=== PATIENT | female | born 1980 | race American Indian/Alaskan Native ===

== ENCOUNTER 2020-12-11 05:51 | Emergency (ER) | payer MEDICAID | END 2020-12-11 09:50 | disposition left against medical advice (07) | LOC: ED 05:51 | DX: Z53.21 Procedure and treatment not carried out due to patient leaving prior to being seen by health care provider (principal) ==

== ENCOUNTER 2021-10-03 09:23 | Emergency (ER) | payer MEDICARE, MEDICAID ==
[2021-10-03 09:24] VITALS: BP 162/110
--- NOTE | 2021-10-03 09:43 | Emergency Department Report ---
ED Female HPI - General Chief complaint: Urogenital-Female Stated complaint: STD/General Illness Time Seen by Provider: 10/03/21 09:26 Source: EMS Mode of arrival: Stretcher Limitations: No Limitations - History of Present Illness Initial comments: Patient presents secondary to lower abdominal pain associate with vaginal discharge and odor. She actually states that she had intercourse with somebody a year ago and is just now developing symptoms. She believes that she has trichomonas. Patient has vaginal discharge and odor that have been present for the last couple of days. She reports having some lower abdominal pain associated with this. There has been no dysuria or frequency. She states that she just "feels bad." She has had no fevers or chills. She has had no vomiting or diarrhea. Patient has muscle aches and body aches, but no cough or congestion. Patient denies sick contacts. She does not believe she is currently . - Related Data Previous Rx's Medication Instructions Recorded Last Taken Type Vit-Fe Fumar-FA [ 1 tab PO QDAY #90 tablet 07/29/15 Unknown Rx Vitamin] Doxycycline Monohydrate 100 mg PO BID #20 cap 10/03/21 Unknown Rx [Doxycycline Monohydrate CAP] Allergies Allergy/AdvReac Type Severity Reaction Status Date / Time No Known Allergies Allergy Verified 10/03/21 09:24 ED Review of Systems ROS: Stated complaint: STD/General Illness Other details as noted in HPI Comment: All other systems reviewed and negative Constitutional: denies: fever Eyes: denies: vision change ENT: denies: throat pain Respiratory: denies: cough Cardiovascular: denies: chest pain Endocrine: denies: unexplained weight loss Gastrointestinal: as per HPI Genitourinary: as per HPI Musculoskeletal: denies: back pain Skin: denies: rash Neurological: denies: headache Hematological/Lymphatic: denies: easy bruising ED Past Medical Hx - Past Medical History Hx Psychiatric Treatment: Yes (depression) - Family History Family history: no significant - Social History Smoking Status: Current Every Day Smoker Substance Use Type: None - Medications Home Medications: Home Medications Medication Instructions Recorded Confirmed Last Taken Type Vit-Fe Fumar-FA [ 1 tab PO QDAY #90 tablet 07/29/15 Unknown Rx Vitamin] Doxycycline Monohydrate 100 mg PO BID #20 cap 10/03/21 Unknown Rx [Doxycycline Monohydrate CAP] ED Physical Exam - General Limitations: No Limitations, Other (Pulse ox noted and normal) General appearance: alert, in no apparent distress - Head Head exam: Present: atraumatic, normocephalic - Eye Eye exam: Present: normal appearance, PERRL, EOMI. Absent: scleral icterus - ENT ENT exam: Present: mucous membranes moist, normal external ear exam - Neck Neck exam: Present: normal inspection. Absent: meningismus - Respiratory Respiratory exam: Present: normal lung sounds bilaterally. Absent: respiratory distress - Cardiovascular Cardiovascular Exam: Present: regular rate, normal rhythm - GI/Abdominal GI/Abdominal exam: Present: soft, tenderness (Suprapubic). Absent: guarding, rebound - Extremities Exam Extremities exam: Present: normal capillary refill - Back Exam Back exam: Absent: CVA tenderness (R), CVA tenderness (L) - Neurological Exam Neurological exam: Present: alert, oriented X3, CN II-XII intact, normal gait. Absent: motor sensory deficit - Psychiatric Psychiatric exam: Present: flat affect - Skin Skin exam: Present: warm, dry ED Course Vital Signs 10/03/21 09:23 Temperature 98 F Pulse Rate 79 Respiratory 18 Rate Blood Pressure 162/110 [Left] O2 Sat by Pulse 99 Oximetry - Reevaluation(s) Reevaluation #1: 10/03/21 09:42 Labs were ordered. Old records reviewed. Reevaluation #2: 10/03/21 11:33 UA was noted. Patient was discharged. ED Medical Decision Making - Medical Decision Making Patient presented with vaginal discharge and concern for sexually transmitted infection. She states that she had been exposed to somebody several months ago. At this time, wet prep was noted. Gonorrhea and Chlamydia are still pending. Patient was treated empirically. She denied dysuria but had white cells in the urine. Doxycycline would certainly cover most urinary tract infection pathogens. She does not appear to be septic or toxic. There is no abdominal tenderness on pelvic exam suggestive of PID. Critical Care Time: No Critical care attestation.: If time is entered above; I have spent that time in minutes in the direct care of this critically ill patient, excluding procedure time. ED Disposition Clinical Impression: Vaginal discharge, Lower abdominal pain Disposition: HOME / SELF CARE / HOMELESS Is pt being admited?: No Condition: Stable Instructions: Vaginitis, [id number], Abdominal Pain, Adult, [id number], Pain Without a Known Cause Additional Instructions: Drink water. Return for problems. Follow-up with your regular doctor or the referral doctor for recheck. Prescriptions: Doxycycline Monohydrate [Doxycycline Monohydrate CAP] 100 mg PO BID #20 cap Referrals: PRIMARY CARE, [Primary Care Provider] - 3-5 Days ABBIE AGOSTO MD [Staff Physician] - 3-5 Days MACRINA NELSON MD [Staff Physician] - 3-5 Days
[2021-10-03 10:48] LABS: HCG Qualitative,Urine Negative (Negative)
[2021-10-03 10:53] LABS: Bacteria,Urine 3+ /HPF (Negative); Bilirubin,Urine NEG (Negative); Blood,Urine NEG (Negative); Color,Urine Yellow (Yellow); Mucus,Urine FEW /HPF; Protein,Urine <15 mg/dL mg/dL (Negative); Urobilinogen,Urine < 2.0 mg/dL (<2.0)
[2021-10-03] MEDS ORDERED: LIDOCAINE-MPF (1%) 10 MG/1 ML VIAL 5 ML INFILTRATI ONE (11:33)
== END 2021-10-03 12:31 | disposition home or self-care (01) ==
LOC: ED 09:23
DX: R10.30 Lower abdominal pain, unspecified (principal); N89.8 Other specified noninflammatory disorders of vagina; F32.A Depression, unspecified; F17.200 Nicotine dependence, unspecified, uncomplicated
CPT/HCPCS: 81001; 81025; 87086; 87210; 87591; 96372; 99283; J0696; J3490